=== PATIENT | male | born 2000 | race Caucasian/White ===

== ENCOUNTER 2020-03-12 01:08 | Outpatient (CLI) | payer OTHER, MEDICAID | END 2020-03-12 01:09 | disposition critical access hospital (66) | LOC: EMS 01:08 | PROVIDERS: ATTEND Surgery | DX: R07.89 Other chest pain (principal) | CPT/HCPCS: A0425; A0429 ==

== ENCOUNTER 2020-03-12 01:40 | Emergency (ER) | payer OTHER, MEDICAID ==
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
[2020-03-12 02:13] VITALS: BP 113/76
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
== END 2020-03-12 02:34 | disposition home or self-care (01) ==
LOC: EDUNIT# → ED 01:40
DX: R07.89 Other chest pain (principal); V48.0XXA Car driver injured in noncollision transport accident in nontraffic accident, initial encounter; W22.11XA Striking against or struck by driver side automobile airbag, initial encounter; Y92.410 Unspecified street and highway as the place of occurrence of the external cause; F11.129 Opioid abuse with intoxication, unspecified; R00.0 Tachycardia, unspecified; F17.200 Nicotine dependence, unspecified, uncomplicated
CPT/HCPCS: 93005; 99281; 99283

== ENCOUNTER 2022-08-13 09:47 | Emergency (ER) | payer MEDICAID, OTHER ==
[2022-08-13 09:57] VITALS: BP 125/69
[2022-08-13] MEDS ORDERED: CLINDAMYCIN 150 MG CAPSULE PO STA (10:10)
--- NOTE | 2022-08-13 10:13 | ED Physician Documentation ---
PD HPI HEENT - Stated complaint Stated Complaint: RT FACIAL SWELLING - Chief complaint Chief Complaint: Heent - History obtained from History obtained from: Patient - Additional information Additional information: The patient comes to the emergency department chief complaint of right mandibular area swelling and pain. The pain has been going on for about 3 days and the swelling just started today. Patient has a history of a decayed tooth that is down to the gum and states that he thinks it is coming from that. He denies any trauma. No fevers or chills. He is otherwise fairly healthy. He overton s not seen a dentist in a very long time. PD PAST MEDICAL HISTORY - Past Surgical History Past Surgical History: No - Present Medications Home Medications: Ambulatory Orders Medication Instructions Recorded Confirmed Buprenorphine HCl/Naloxone HCl 2 each SL DAILY 08/13/22 08/13/22 [Buprenorphine-Nalox 8-2Mg Film] Ondansetron Odt [Zofran Odt] 4 mg TL Q12H PRN 08/13/22 08/13/22 clindamycin HCL [Clindamycin HCl] 300 mg PO Q8HR #21 cap 08/13/22 cloNIDine [Catapres] 0.1 mg PO BID 08/13/22 08/13/22 hydrOXYzine HCL [Hydroxyzine HCl] 50 mg PO QID PRN 08/13/22 08/13/22 - Allergies Allergies/Adverse Reactions: Allergies Allergy/AdvReac Type Severity Reaction Status Date / Time codeine Allergy Rash Verified 08/13/22 10:02 Penicillins AdvReac Unknown Verified 08/13/22 10:02 - Social History Does the pt smoke?: Yes Smoking Status: Current every day smoker Does the pt drink ETOH?: No Does the pt have substance abuse?: No - Immunizations Immunizations are current?: Yes - POLST Patient has POLST: No PD ED PE NORMAL - Vitals Vital signs reviewed: Yes - General General: Alert and oriented X 3, No acute distress, Well developed/nourished - HEENT HEENT: Atraumatic, PERRL, EOMI, Moist mucous membranes, Other (Severely decayed right mandibular first molar. Tooth remnant does not rise above the gingiva. Tenderness and swelling of adjacent gingiva. Moderate edema of surrounding soft tissue submentally and inferior buccally. No tenderness/swelling of floor of mouth.) - Respiratory Respiratory: No respiratory distress - Derm Derm: Normal color, Warm and dry, No rash - Extremities Extremities: No deformity - Neuro Neuro: Alert and oriented X 3 - Psych Psych: Normal mood, Normal affect Results - Vitals Vitals: Vital Signs - 24 hr 08/13/22 09:51 Temperature 36.8 C Heart Rate 97 Respiratory 18 Rate Blood Pressure 125/69 O2 Saturation 99 Oxygen O2 Source Room air PD Medical Decision Making - ED course Complexity details: considered differential, d/w patient, d/w family ED course: The patient was allergic to penicillin so he was started on clindamycin in the emergency department. We have discussed the need to take the antibiotics as directed until gone, and to get established with a dentist as soon as possible. I have sent a prescription for clindamycin to the pharmacy of the patient's choice. We have discussed the usual indications for return. Departure - Departure Disposition: Home, Self Care Clinical Impression: Dental infection Condition: Stable Instructions: ED Abscess Dental Follow-Up: PRAVEENA LAGUNAS [Physician No Access] - Prescriptions: clindamycin HCL [Clindamycin HCl] 300 mg PO Q8HR #21 cap Comments: You have been started on antibiotics here in the emergency department today. Although pus is gross and may taste bad, it will not cause harm for you to swallow it, other than it might irritate your stomach and make you want to vomit. If you can get the abscess to drain, it will make you a lot more comfortable, and as such, it is a good idea to try to get it to do this. You may help encourage drainage by placing a hot tea bag in the space between your gum and your cheek, right where the swelling is. You should keep that and there as long as possible, really heating if necessary, and do this several times a day. You should also take the antibiotics as directed, every day, until the course is complete. You should call to get a general dentist but most likely, because your tooth is decayed down to the gum, you will need to see an oral surgeon. The contact information for our local oral surgeon, Dr. Lagunas, has been provided. Please call his office today to make a follow-up appointment. The prescription for your antibiotics has been electronically transmitted to the [facility] in [place], at your request.
== END 2022-08-13 10:25 | disposition home or self-care (01) ==
LOC: ED 09:47
DX: K04.7 Periapical abscess without sinus (principal); Z88.0 Allergy status to penicillin; F17.200 Nicotine dependence, unspecified, uncomplicated; Z79.899 Other long term (current) drug therapy
CPT/HCPCS: 99282; 99283; A9270